=== PATIENT | female | born 1965 | race Asian ===

== ENCOUNTER 2017-07-13 15:17 | Emergency (ER) | payer SELFPAY ==
[~2017-07-13] VITALS: Ht 167.6 cm; Wt 77.1 kg
[2017-07-13 15:35] VITALS: BP 185/95
== END 2017-07-13 15:55 | disposition left against medical advice (07) ==
LOC: ER 15:17 → EDBD 15:17 → ER 15:55
DX: R11.2 Nausea with vomiting, unspecified (principal); R19.7 Diarrhea, unspecified; Z53.21 Procedure and treatment not carried out due to patient leaving prior to being seen by health care provider

== ENCOUNTER 2025-03-31 14:29 | Emergency (ER) | payer OTHER ==
[~2025-03-31] VITALS: Ht 167.6 cm; Wt 72.7 kg
[2025-03-31 14:38] VITALS: TEMP 98.4
[2025-03-31] MEDS: ONDANSETRON ODT 4 MG TAB PO ONE (17:15)
[2025-03-31] MEDS: HYDROmorphone HCL 2 MG/ML VL/or syr IM ONE (18:04)
--- NOTE | 2025-03-31 18:06 | DVH ---
CLINICAL INDICATION: Fall/trauma TECHNIQUE: 3 radiographic views of the right shoulder were obtained. Comparison: None FINDINGS/IMPRESSION: There is acute mildly displaced fracture of the humeral head and neck. No dislocation.
--- NOTE | 2025-03-31 18:06 | DVH ---
CLINICAL INDICATION: Fall/trauma TECHNIQUE: 2 radiographic views of the right humerus were obtained. Comparison: None FINDINGS/IMPRESSION: There is acute mildly displaced fracture of the humeral head and neck.
--- NOTE | 2025-03-31 18:07 | DVH ---
CLINICAL INDICATION: Fall/trauma TECHNIQUE: 2 radiographic views of the right elbow were obtained. Comparison: None FINDINGS/IMPRESSION: fracture dislocation noted on the lateral view. no evidence of acute fracture or dislocation. The visualized joint space is well maintained. There is no radiopaque foreign body.
--- NOTE | 2025-03-31 18:31 | ED.PDOC ---
Musculoskeletal HPI Comments This patient is a pleasant 60-year-old female who arrives to the ED today via EMS for evaluation of right shoulder and right arm pain concerns status post fall a proximally 1 hour prior to arrival. Patient states she was at her home when she had a mechanical trip and fall and landed on her right shoulder. Patient states significant pain throughout the shoulder and upper right arm. Patient denies any head trauma or blood loss. Patient was hypertensive at arrival. Chief Complaint: Upper Extremity Time Seen by MD: 16:53 Primary Care Provider: YVETTE PRABHAKAR Reviewed Notes: Nurses Notes Allergies: Coded Allergies: NO KNOWN ALLERGIES (Unverified , 07/13/17) Information Source: Patient Mode of Arrival: EMS Location: Right Extremity Location: Arm, Shoulder Timing: Minutes Prehospital treatment: None Severity: Severe Able to Move Extremity: No Bear Weight: Fully Pain: Severe Hand Dominance: Right Mechanism: Blunt Trauma Circumstances: Fall Onset of Symptoms: After Trauma Symptoms: Swelling, Pain DVT Risk Factors: NONE Associated signs and symptoms: Shoulder pain, Arm pain Past Medical History PAST MEDICAL HISTORY: Denies Surgical History: Denies all surgeries HAND SAMPLE MAKER History: No Pertinent HAND SAMPLE MAKER History Family History Family History: Reviewed,noncontributory to illness, No family hx of Cancer, No family hx of DM, No family hx of Heart anastasiya, No family hx of HTN, No family hx ofKidney anastasiya, No family hx of Liver anastasiya, No family hx of Lung anastasiya, No family hx of Stroke Social History Smoker: Non-Smoker Alcohol: Denies ETOH Use Drugs: Denies Drug Use Lives In: Home Constitutional: denies: chills, diaphoresis, fatigue, fever, malaise, sweats, weakness, others EENTM: denies: blurred vision, double vision, ear bleeding, ear discharge, ear drainage, ear pain, ear ringing, eye pain, eye redness, hearing loss, mouth pain, mouth swelling, nasal discharge, nose bleeding, nose congestion, nose pain, photophobia, tearing, throat pain, throat swelling, voice changes, others Respiratory: denies: cough, hemoptysis, orthopnea, SOB at rest, shortness of breath, SOB with excertion, stridor, wheezing, others Cardiovascular: denies: chest pain, dizzy spells, diaphoresis, Dyspnea on exertion, edema, irregular heart beat, left arm pain, lightheadedness, palpitations, PND, syncope, others Gastrointestinal: denies: abdomen distended, abdominal pain, blood streaked bowels, constipated, diarrhea, dysphagia, difficulty swallowing, hematemesis, melena, nausea, poor appetite, poor fluid intake, rectal bleeding, rectal pain, vomiting, others Genitourinary: denies: abnormal vagina bleeding, burning, dyspareunia, dysuria, flank pain, frequency, hematuria, incontinence, pain, , vagina discharge, urgency, others Neurological: denies: dizziness, fainting, headache, left sided numbness, left sided weakness, numbness, paresthesia, pre-existing deficit, right sided numbness, right sided weakness, seizure, speech problems, tingling, tremors, weakness, others Musculoskeletal: reports: others (Right shoulder and arm pain); denies: back pain, gout, joint pain, joint swelling, muscle pain, muscle stiffness, neck pain Integumetry: denies: bruises, change in color, change in hair/nails, dryness, laceration, lesions, lumps, rash, wounds, others Allergic/Immunocompromised: denies: Difficulty Healing, Frequent Infections, Hives, Itching, others Hematologic/Lymphatic: denies: anemia, blood clots, easy bleeding, easy bruising, swollen glands, others Endocrine: denies: excessive hunger, excessive sweating, excessive thirst, excessive urination, flushing, intolerance to cold, intolerance to heat, unexplained weight gain, unexplained weight loss, others Psychiatric: denies: anxiety, bipolar disorder, depression, hopeless, panic disorder, schizophrenia, sleepless, suicidal, others Physical Exam General Appearance: Moderate Distress (Moderate to significant distress due to pain concerns. Patient was tearful and evaluation.), Normal HEENT: Normal ENT Inspection, Pharynx Normal, TMs Normal Neck: Full Range of Motion, Non-Tender, Normal, Normal Inspection Respiratory: Chest Non-Tender, Lungs Clear, No Accessory Muscle Use, No Respiratory Distress, Normal Breath Sounds Cardiovascular: No Edema, No JVD, No Murmur, No Gallop, Normal Peripheral Pulses, Regular Rate/Rhythm Breast Exam: Deferred Gastrointestinal: No Organomegaly, Non Tender, No Pulsatile Mass, Normal Bowel Sounds, Soft Genitalia: Deferred Pelvic: Deferred Rectal: Deferred Extremities: Other (Anterior and lateral aspect of the right shoulder is diffusely tender to [place] patient is throughout extending into the proximal humerus. Significant reduced range of motion. Pain extends into the elbow region. Distal neurovascularly intact. Cap refill less than 3 seconds.) Neurologic: Alert Cerebellar Function: NOT DONE Reflexes: NOT DONE Skin: Dry, Normal Color, Warm Lymphatic: No Adenopathy Was a procedure done? Was a procedure done?: No Differential Diagnosis EXT Differential Diagnosis: Fracture, Contusion X-Ray, Labs, Meds, VS Vital Signs Date Time Temp Pulse Resp B/P (MAP) Pulse Ox O2 Delivery O2 Flow Rate FiO2 03/31/25 18:04 92 18 139/82 03/31/25 18:01 92 18 139/82 (101) 98 03/31/25 18:01 92 18 98 Room Air 03/31/25 14:38 98.4 90 17 163/83 99 98.4 Current Medications Medications (Trade) Dose Ordered Sig/Ton Route Start Time Stop Time Status Last Admin Hydromorphone HCl (Dilaudid Injection) 1 mg ONCE ONCE IM 03/31/25 17:15 03/31/25 17:16 DC 03/31/25 18:04 Ondansetron HCl (Zofran Po) 4 mg ONCE ONCE PO 03/31/25 17:15 03/31/25 17:16 DC 03/31/25 17:15 X-Ray, Labs, Meds, VS Comment All studies performed the ED were evaluated by me personally. Imaging studies confirmed a right humeral neck fracture. Patient has [employer] for insurance and therefore, I contacted [facility] and spoke with the Dr. Hidalgo and advised him of imaging study results. He will contact outpatient ortho and some old amy l contact the patient in the next day or two for follow up evaluation. Authorization number [id number]. Time of 1ST Reevaluation: 18:49 Reevaluation 1ST: Improved Consultation: PCP, Other (Orthopedist) Patient Education/Counseling: Diagnosis, Treatment Family Education/Counseling: Diagnosis, Treatment Sepsis Recent Procedure: No On Antibiotic Therapy: No Respiratory Rate >20: No Heart Rate >90: No Temp<36 C (96.8 F) or >38.3 C: No SBP <90 or MAP <65 mmHG: No New Acute Mental Status Change: No Is the patient on CPAP, BIPAP,: No IV fluid given: No Departure 1 Departure Time of Disposition: 18:50 Impression: Primary Impression: Fracture of neck of right humerus Disposition: HOME / SELF CARE / HOMELESS Condition: Stable Additional Instructions: Advised pain medication as needed. [facility] was contacted and notified of the fracture. They will contact the patient in the next day or two to schedule an orthopedic outpatient follow up. e-Prescriptions Ibuprofen Micronized (Ibuprofen) 800 Mg Tab 800 MG PO Q8HP PRN, #20 TAB Prov: JUAN VITAL PAC 03/31/25 Oxycodone W/ Acetaminophen (Percocet 5/325MG) 1 Tab Tb 1 TAB PO Q8HP PRN, #20 TAB Prov: JUAN VITAL PAC 03/31/25 Discharged With: Self, Friend Critical Care Note Critical Care Time?: No Stability Stability form required: No Heart Score Heart Score: Heart Score Response (Comments) Value History N/A 0 EKG N/A 0 Age N/A 0 Risk Factors N/A 0 Troponin N/A 0 Total 0 JUAN VITAL PAC Mar 31, 2025 18:31
[2025-03-31] MEDS ORDERED: IBUP-1455 PO (18:52)
[2025-03-31] MEDS ORDERED: PERCOT PO (18:52)
[2025-03-31 19:35] VITALS: PULSE 92; RESP 18; O2SAT 98
[2025-03-31 19:37] VITALS: BP 139/82; PULSE 92; RESP 18
== END 2025-03-31 18:54 | disposition home or self-care (01) ==
LOC: EDBD 14:29 → EDUNIT# 14:29 → ER 14:29
DX: S42.211A Unspecified displaced fracture of surgical neck of right humerus, initial encounter for closed fracture (principal); W01.0XXA Fall on same level from slipping, tripping and stumbling without subsequent striking against object, initial encounter; Y93.89 Activity, other specified; Y92.89 Other specified places as the place of occurrence of the external cause; Y99.8 Other external cause status
CPT/HCPCS: 73030; 73060; 73070; 96372; 99284; J1171; Q0162